=== PATIENT | female | born 1995 | race Caucasian/White ===

== ENCOUNTER 2017-02-26 08:15 | Emergency (ER) | payer OTHER ==
[~2017-02-26] VITALS: Ht 160 cm; Wt 115.3 kg
[~2017-02-26 08:15] MED LIST: ACET325T33 PO; AZIT250T94 PO; BEN25 PO; CLOT30CR24 TOP; IBUP800T25 PO; ONDA4TAB14 PO
[2017-02-26 08:18] VITALS: Ht 160 cm; Wt 115.3 kg
[2017-02-26] MEDS ORDERED: ONDANSETRON (ODT) 4 MG TAB ODT STA (08:28)
[2017-02-26] MEDS ORDERED: HYDROCODONE/APAP (5/325) TAB PO ONE (08:30)
--- NOTE | 2017-02-26 08:30 | ERD ---
ER Documentation Chief Complaint Chief Complaint RUQ PAIN W/ NAUSEA SINCE LAST NIGHT HPI 21-year-old female history of obesity presenting with right upper quadrant abdominal pain with nausea starting last night after eating meat and "chile". Patient describes localized pain that is sharp, intermittent, moderate associated with nausea but no vomiting. She states that she tried taking Tylenol without much relief. She denies fevers chills, cough, chest pain, shortness breath. He was recently seen for pneumonia on February 07 and was treated with antibiotics the patient states that she completed the course. ROS All systems reviewed and are negative except as per history of present illness. Medications Home Meds Active Scripts Cephalexin* (Keflex*) 500 Mg Capsule, 500 MG PO TID for 5 Days, CAP Prov:SULMA SAM PA-C 02/26/17 Ondansetron (Ondansetron Odt) 4 Mg Tab.rapdis, 4 MG PO Q6H Y for NAUSEA AND/OR VOMITING, #10 TAB Prov:SULMA SAM PA-C 02/26/17 Ibuprofen* (Motrin*) 600 Mg Tab, 600 MG PO Q6, #30 TAB Prov:SULMA SAM PA-C 02/26/17 Hydrocodone/Acetaminophen ([place] 5-325 Tablet) 1 Each Tablet, 1 TAB PO Q6H Y for PAIN, #7 TAB Prov:SULMA SAM PA-C 02/26/17 Ondansetron (Ondansetron Odt) 4 Mg Tab.rapdis, 4 MG PO Q6H Y for NAUSEA AND/OR VOMITING, #10 TAB Prov:KENYATTA COREY NP 02/07/17 Acetaminophen* (Tylenol*) 325 Mg Tablet, 1 TAB PO Q6 Y for PAIN AND OR ELEVATED TEMP, #20 TAB Prov:KENYATTA COREY NP 02/07/17 Azithromycin* (Zithromax*) 250 Mg Tablet, 250 MG PO .CAROLIANCK DIRECTED, #6 TAB TAKE 500 MG (2 TABS) THE FIRST DAY THEN 250 MG (1 TAB) DAYS 2-5 Prov:KENYATTA COREY NP 02/07/17 Diphenhydramine Hcl* (Benadryl*) 25 Mg Cap, 25 MG PO Q6, #14 CAP Prov:CIRO DE LA CRUZ DO 06/06/15 Ibuprofen* (Motrin*) 800 Mg Tab, 800 MG PO Q6H Y for PAIN AND OR ELEVATED TEMP, #30 TAB Prov:CIRO DE LA CRUZ DO 06/06/15 Clotrimazole* (Clotrimazole* AF) 1% - 30 Gm Cream.gm., 1 APPLIC TOP BID for 7 Days, TUB Prov:CIRO DE LA CRUZ DO 06/06/15 Allergies Allergies: Coded Allergies: No Known Drug Allergies (Verified Allergy, Mild, 02/02/12) PMhx/Soc Hx Miscellaneous Medical Probl: No (NO MED HX) Hx Alcohol Use: No Hx Substance Use: No Hx Tobacco Use: No Physical Exam Vitals Vital Signs Date Time Temp Pulse Resp B/P Pulse Ox O2 Delivery O2 Flow Rate FiO2 02/26/17 08:18 97.7 80 20 125/68 98 Physical Exam General: Well-developed, well-nourished. The patient appears in no acute distress. HEENT: Head is normocephalic, atraumatic. No scleral icterus. Pupils are equal , round, and reactive. Oral mucous membranes are moist. No pharyngeal erythema. Neck: Supple. Nontender. Lungs: Clear to auscultation. Normal air movement. Heart: Regular rate and rhythm. S1 and S2 are normal. No murmurs, gallops, or rubs. Abdomen: Soft, tender to palpation in the right upper quadrant, no Jones sign, no hepatosplenomegaly nondistended. Bowel sounds are normoactive. Tenderness to McBurney's. There is no rebound or guarding. Extremities: No clubbing or cyanosis. Normal pulses. Moving extremities x 4. No weakness. Neurologic: Alert and oriented 3. No focal deficits. Skin: Normal turgor. No rash or lesions. Result Diagram: 02/26/1791902/26/1720 Results 24 hrs Laboratory Tests Test 02/26/17 08:30 02/26/17 09:20 Urine Color YELLOW Urine Clarity SLIGHTLY CLOUDY Urine pH 6.0 Urine Specific [place] 1.013 Urine Ketones NEGATIVEmg/dL Urine Nitrite NEGATIVEmg/dL Urine Bilirubin NEGATIVEmg/dL Urine Urobilinogen NEGATIVEmg/dL Urine Leukocyte Esterase 1+Anisa/ul Urine Microscopic RBC 2/HPF Urine Microscopic WBC 7/HPF Urine Squamous Epithelial Cells FEW/HPF Urine Bacteria FEW/HPF Urine Hemoglobin NEGATIVEmg/dL Urine Glucose NEGATIVEmg/dL Urine Total Protein NEGATIVEmg/dl White Blood Count 11.010^3/ul Red Blood Count 4.6210^6/ul Hemoglobin 12.1g/dl Hematocrit 37.5% Mean Corpuscular Volume 81.2fl Mean Corpuscular Hemoglobin 26.2pg Mean Corpuscular Hemoglobin Concent 32.3g/dl Red Cell Distribution Width 16.3% Platelet Count 25066^3/UL Mean Platelet Volume 9.1fl Neutrophils % 68.8% Lymphocytes % 25.3% Monocytes % 3.8% Eosinophils % 1.4% Basophils % 0.4% Nucleated Red Blood Cells % 0.0/100WBC Neutrophils # 7.610^3/ul Lymphocytes # 2.810^3/ul Monocytes # 0.410^3/ul Eosinophils # 0.210^3/ul Basophils # 0.010^3/ul Nucleated Red Blood Cells # 0.010^3/ul Sodium Level 141mmol/L Potassium Level 4.2mmol/L Chloride Level 107mmol/L Carbon Dioxide Level 26mmol/L Anion Gap 12 Blood Urea Nitrogen 11mg/dl Creatinine 0.55mg/dl Glucose Level 97mg/dl Calcium Level 9.3mg/dl Total Bilirubin 0.1mg/dl Direct Bilirubin 0.00mg/dl Indirect Bilirubin 0.1mg/dl Aspartate Amino Transf (AST/SGOT) 23IU/L Alanine Aminotransferase (ALT/SGPT) 32IU/L Alkaline Phosphatase 103IU/L Total Protein 7.9g/dl Albumin 3.8g/dl Globulin 4.10g/dl Albumin/Globulin Ratio 0.92 Lipase 157U/L Serum HCG, Qualitative NEGATIVE Current Medications Medications (Trade) Dose Ordered Sig/Anh Route PRN Reason Start Time Stop Time Status Last Admin Dose Admin Acetaminophen/ Hydrocodone Bitart ([place] (5/325)) 1 tab ONCE ONCE PO 02/26/17 08:30 02/26/17 08:31 DC 02/26/17 08:36 Ondansetron HCl (Zofran Odt) 4 mg ONCE STAT ODT 02/26/17 08:28 02/26/17 08:29 DC 02/26/17 08:36 DIAGNOSTIC IMAGING REPORT Patient: SIOMARA MANTILLA : 1995 Age: 21 Sex: F MR #: [id number] DOS: 02/26/17 0826 Ordering MD: SULMA SAM PA-C Location: [facility] Room/Bed: PROCEDURE: Right upper quadrant abdominal ultrasound. CLINICAL INDICATION: Abdominal pain TECHNIQUE: Yanez scale and color doppler ultrasound images of the right upper quadrant of the abdomen. COMPARISON: None FINDINGS: Pancreas: Visualized portions appear of normal echogenicity without focal lesions. Liver: Morphology:Normal in size. Contour:Normal, no evidence of nodularity. Echogenicity: Normal. Focal lesions:None. Main portal vein: Patent with hepatopetal flow. Biliary System: Gallbladder wall: Normal thickness. Gallstones: Multiple are present. Intrahepatic bile ducts: Normal caliber. Common bile duct diameter (mm): 3.7 Kidneys: Right length (cm) : 11.1 Right cortical thickness: Normal. Echogenicity: Normal. Hydronephrosis: None. Renal calculi: None. Focal lesions: None. Free fluid/ascites: None. Abdominal aorta: Normal caliber of the visualized segments. Other findings: None. IMPRESSION: Cholelithiasis without evidence of abnormal gallbladder wall thickening to suggest cholecystitis. Normal caliber of the intrahepatic and extrahepatic biliary system. RPTAT: AADD .Anthony Perry MD, MD Date Time Electronically viewed and signed by .Anthony Perry MD, MD on 02/26/2017 09:17 .B/ Procedures/MDM 21 year old female comes in to the ER with biliary colic, without evidence of choledocholithiasis, acute cholangitis, pancreatitis, acute cholecystitis. Patient's liver function tests, lipase are normal, including bilirubin. Urine was significant for 1+ leukocyte esterase with 8 white blood cells were treated for UTI. Patient was given [place] with [facility] emergency department and states that her pain is better, serial abdominal examinations were done and she is resting comfortably. She was given all copies of her lab and ultrasound findings and was asked to follow-up with her primary care doctor. She was given dietary precautions, advised to get a referral to see a surgeon. Departure Diagnosis: Primary Impression: Biliary colic Additional Impression: UTI (urinary tract infection) Condition: Good SULMA SAM PA-C Feb 26, 2017 08:30
--- NOTE | 2017-02-26 09:17 | RADRPT ---
PROCEDURE: Right upper quadrant abdominal ultrasound. CLINICAL INDICATION: Abdominal pain TECHNIQUE: Yanez scale and color doppler ultrasound images of the right upper quadrant of the abdom en. COMPARISON: None FINDINGS: Pancreas: Visualized portions appear of normal echogenicity without focal lesions. Liver: Morphology:Normal in size. Contour:Normal, no evidence of nodularity. Echogenicity: Normal. Focal lesions:None. Main portal vein: Patent with hepatopetal flow. Biliary System: Gallbladder wall: Normal thickness. Gallstones: Multiple are present. Intrahepatic bile ducts: Normal caliber. Common bile duct diameter (mm): 3.7 Kidneys: Right length (cm) : 11.1 Right cortical thickness: Normal. Echogenicity: Normal. Hydronephrosis: None. Renal calculi: None. Focal lesions: None. Free fluid/ascites: None. Abdominal aorta: Normal caliber of the visualized segments. Other findings: None. IMPRESSION: Cholelithiasis without evidence of abnormal gallbladder wall thickening to suggest cholecystitis. Normal caliber of the intrahepatic and extrahepatic biliary system. RPTAT: AADD .Anthony Perry MD, MD Date Time Electronically viewed and signed by .Anthony Perry MD, MD on 02/26/2017 09:17 .B/
[2017-02-26 09:25] LABS: ADD UMIC YES; UR ASCORBIC ACID NEGATIVE (NEGATIVE); UR BACTERIA FEW /HPF (NONE SEEN); UR BILIRUBIN (Dip) NEGATIVE (NEGATIVE); UR BLOOD (Dip) NEGATIVE (NEGATIVE); UR CLARITY SLIGHTLY CLOUDY (CLEAR); UR COLOR YELLOW (YELLOW); UR GLUCOSE (Dip) NEGATIVE (NEGATIVE); UR KETONES (Dip) NEGATIVE (NEGATIVE); UR LEUKOCYTE ESTERASE (Dip) 1+ Leu/ul (NEGATIVE); UR NITRITE (Dip) NEGATIVE (NEGATIVE); UR RBC 2 /HPF (0-5); UR SPECIFIC GRAVITY (Dip) 1.013 (1.003-1.030); UR SQUAMOUS EPITHELIAL CELL FEW /HPF (FEW); UR TOTAL PROTEIN (Dip) NEGATIVE (NEGATIVE); UR UROBILINOGEN (Dip) NEGATIVE (NEGATIVE)
[2017-02-26 09:36] LABS: BASOPHILS % 0.4 % (0.0-2.0); EOSINOPHILS # 0.2 10^3/ul (0.0-0.5); EOSINOPHILS % 1.4 % (0.0-7.0); HEMATOCRIT 37.5 % (37.0-47.0); HEMOGLOBIN 12.1 g/dl (12.0-16.0); LYMPHOCYTES # 2.8 10^3/ul (0.8-2.9); LYMPHOCYTES % 25.3 % (18.0-55.0); MEAN CORPUSCULAR HEMOGLOBIN 26.2 pg (29.0-33.0); MEAN CORPUSCULAR HGB CONC 32.3 g/dl (32.0-37.0); MEAN CORPUSCULAR VOLUME 81.2 fl (72.0-104.0); MEAN PLATELET VOLUME 9.1 fl (7.4-10.4); MONOCYTE # 0.4 10^3/ul (0.3-0.9); MONOCYTES % 3.8 % (0.0-13.0); NEUTROPHIL # 7.6 10^3/ul (1.6-7.5); NEUTROPHILS % 68.8 % (30.0-74.0); PLATELET COUNT 448 10^3/UL (140-415); RED BLOOD COUNT 4.62 10^6/ul (4.20-5.40); RED CELL DISTRIBUTION WIDTH 16.3 % (11.5-14.5)
[2017-02-26] MEDS ORDERED: IBUP-1542 PO (09:39)
[2017-02-26] MEDS ORDERED: ONDA4TAB14 PO (09:39)
[2017-02-26] MEDS ORDERED: CEPH-443 PO (09:39)
[2017-02-26] MEDS ORDERED: HYDR-906 PO (09:39)
[2017-02-26 09:54] LABS: ALBUMIN 3.8 g/dl (3.3-4.9); ALBUMIN/GLOBULIN RATIO 0.92; BILIRUBIN,INDIRECT 0.1 mg/dl (0-1.1); BILIRUBIN,TOTAL 0.1 mg/dl (0.2-1.3); CALCIUM 9.3 mg/dl (8.4-10.2); CREATININE 0.55 mg/dl (0.44-1.00); POTASSIUM 4.2 mmol/L (3.5-5.1); TOTAL PROTEIN 7.9 g/dl (6.1-8.1)
== END 2017-02-26 10:30 | disposition home or self-care (01) ==
LOC: FTE 08:15
DX: K80.50 Calculus of bile duct without cholangitis or cholecystitis without obstruction (principal); N39.0 Urinary tract infection, site not specified
CPT/HCPCS: 36415; 76705; 80053; 81001; 83690; 84703; 85025; Z7502; Z7610

== ENCOUNTER 2017-10-07 04:19 | Emergency (ER) | END 2017-10-07 08:42 | disposition home or self-care (01) ==

== ENCOUNTER 2017-10-28 22:50 | Emergency (ER) | END 2017-10-29 03:15 | disposition home or self-care (01) ==

== ENCOUNTER 2017-12-08 09:56 | Emergency (ER) | END 2017-12-08 12:04 | disposition home or self-care (01) ==

== ENCOUNTER 2017-12-28 06:08 | Day surgery (SDC) | END 2017-12-28 12:30 | disposition home or self-care (01) ==

== ENCOUNTER 2018-01-06 00:27 | Emergency (ER) | END 2018-01-06 01:35 | disposition home or self-care (01) ==

== ENCOUNTER 2018-01-31 22:17 | Emergency (ER) | END 2018-02-01 01:59 | disposition home or self-care (01) ==

== ENCOUNTER 2018-03-09 13:14 | Emergency (ER) | END 2018-03-09 16:14 | disposition home or self-care (01) ==

== ENCOUNTER 2018-09-01 18:45 | Emergency (ER) | payer OTHER ==
[~2018-09-01] VITALS: Ht 160 cm; Wt 122.2 kg
[~2018-09-01 18:45] MED LIST changes: -ACET325T33 PO; +AMOX1TAB10 PO; +AMOX500C2 PO; -AZIT250T94 PO; -BEN25 PO; -CLOT30CR24 TOP; +D-ME473S2 PO; +IBUP-1542 PO; -IBUP800T25 PO; +NAPR-985 PO; -ONDA4TAB14 PO
[2018-09-01 18:48] VITALS: Ht 160 cm; Wt 122.2 kg
--- NOTE | 2018-09-01 20:37 | ERD ---
ER Documentation Chief Complaint Chief Complaint Pt reports tonsils removed a week ago and now having bleeding in throat HPI 22-year-old woman status post tonsillectomy presenting with taste of blood to the back of her throat. She states she has been using Vicodin without relief for postoperative pain as well. She denies fevers or chills, no difficulty speaking or swallowing, no chest pain or shortness of breath, no dizziness or loss of consciousness ROS All systems reviewed and are negative except as per history of present illness. Medications Home Meds Active Scripts Oxycodone HCl/Acetaminophen (Percocet 5-325 mg Tablet) 1 Each Tablet, 1 EACH PO TID PRN for PAIN LEVEL 6-10, #9 TAB Prov:POLO CUMMINGS MD 09/01/18 Ibuprofen* (Motrin*) 600 Mg Tab, 600 MG PO Q8 PRN for PAIN AND/OR INFLAMMATION, #30 TAB Prov:POLO CUMMINGS MD 09/01/18 Chlorhexidine Gluconate (Peridex) 473 Ml Mouthwash, 15 ML MM BID for 7 Days, BOTTLE Prov:CARTER LINDSEY DO 08/21/18 Hydrocodone/Acetaminophen ([place] 10-325 Tablet) 1 Each Tablet, 1 TAB PO Q6H PRN for PAIN, #16 TAB Prov:CARETR LINDSEY DO 08/21/18 Azithromycin* (Azithromycin*) 200 Mg/5 Ml Susp.recon, 500 MG PO DAILY, #1 BOTTLE 500MG DAY 1 THEN 250 MG DAY 2-5 Prov:CARTER LINDSEY DO 08/21/18 Allergies Allergies: Coded Allergies: No Known Drug Allergies (Verified Allergy, Unknown, 08/19/18) PMhx/Soc History of Surgery: Yes (gall bladder, TONSILECTOMY 2019) Anesthesia Reaction: No Hx Neurological Disorder: No Hx Respiratory Disorders: No Hx Cardiac Disorders: No Hx Psychiatric Problems: No Hx Miscellaneous Medical Probl: No Hx Alcohol Use: No Hx Substance Use: No Hx Tobacco Use: No Smoking Status: Never smoker FmHx Family History: No diabetes Physical Exam Vitals Vital Signs Date Temp Pulse Resp B/P (MAP) Pulse Ox O2 O2 Flow FiO2 Time Delivery Rate 09/01/18 98.3 78 19 116/85 99 Room Air 21:27 (95) 09/01/18 98.7 75 20 140/64 98 18:48 (89) Physical Exam GENERAL: Well-developed, well-nourished, well-hydrated, in no apparent distress, looks nontoxic in appearance, afebrile HEENT: Moist mucous membranes, pink conjunctiva, no cervical spine tenderness or step-off deformities, no goiter, no jaundice or icterus, extraocular movements intact without pain. No submandibular induration, and no pharyngeal erythema. Tonsillar pillars revealed granulation tissue and recent surgical changes but no bleeding, no purulent discharge NEURO: Alert and oriented 3, cranial nerves II through XII intact bilaterally, pupils equal round reactive to light, gait normal CARDIAC: Regular rate and rhythm, no murmurs rubs or gallops LUNGS: Clear bilaterally no wheezing crackles or stridor Result Diagram: 09/01/18193409/01/181934 Results 24 hrs Laboratory Tests Test 09/01/18 19:35 White Blood Count 10.9 10^3/ul Red Blood Count 4.60 10^6/ul Hemoglobin 11.6 g/dl Hematocrit 37.7 % Mean Corpuscular Volume 82.0 fl Mean Corpuscular Hemoglobin 25.2 pg Mean Corpuscular Hemoglobin Concent 30.8 g/dl Red Cell Distribution Width 16.1 % Platelet Count 463 10^3/UL Mean Platelet Volume 8.9 fl Immature Granulocytes % 0.300 % Neutrophils % 64.4 % Lymphocytes % 28.5 % Monocytes % 5.3 % Eosinophils % 1.0 % Basophils % 0.5 % Nucleated Red Blood Cells % 0.0 /100WBC Immature Granulocytes # 0.030 10^3/ul Neutrophils # 7.0 10^3/ul Lymphocytes # 3.1 10^3/ul Monocytes # 0.6 10^3/ul Eosinophils # 0.1 10^3/ul Basophils # 0.1 10^3/ul Nucleated Red Blood Cells # 0.0 10^3/ul Sodium Level 141 mmol/L Potassium Level 3.7 mmol/L Chloride Level 104 mmol/L Carbon Dioxide Level 29 mmol/L Anion Gap 8 Blood Urea Nitrogen 9 mg/dl Creatinine 0.54 mg/dl Est Glomerular Filtrat Rate mL/min > 60 mL/min Glucose Level 82 mg/dl Calcium Level 9.3 mg/dl Procedures/MDM CBC reveals mild anemia, electrolytes normal. Patient feels much better at this time, and vital signs are normal, symptoms have improved. I did give strict instructions to return to the ED if symptoms continue or worsen, patient will otherwise follow-up with primary care physician. Patient understood instructions and agreed to plan. Disclaimer: Inadvertent spelling and grammatical errors are likely due to EH R/dictation software use and do not reflect on the overall quality of patient care. Also, please note that the electronic time recorded on this note does not necessarily reflect the actual time of the patient encounter. Departure Diagnosis: Primary Impression: Postoperative bleeding from incision Additional Impression: Postoperative pain Condition: Good Patient Instructions: Post Op Wound Check, Pain Referrals: [facility] (PCP) POLO CUMMINGS MD September 01, 2018 20:37
[2018-09-01 21:27] VITALS: BP 116/85; PULSE 78; RESP 19
--- NOTE | 2018-09-03 22:39 | OPR ---
Date/Time of Note Date/Time of Note DATE: 09/03/18 TIME: 22:34 Operative Report Procedure Date: September 03, 2018 Preoperative Diagnosis Post tonsillectomy bleeding. Postoperative Diagnosis Left tonsil fossa bleeding. Operation/Procedure Performed Exam under anesthesia, control of left tonsil fossa hemorrhage, gastric evacuation. Surgeon see signature line Safety And Health Consultant None Anesthesia Type: general Estimated Blood Loss: 10 - 50 ml's Transfusion none Specimen none Grafts/Implants none Complications none Pt Condition Post Procedure: stable Disposition: PACU Indications Called to ED for rapid oral bleeding. Patient found with large clot left fossa, vomiting blood. To OR emergently for control of hemorrhage. Procedure Description Description of procedure: The patient was identified in the holding area after transfer from ED and taken to OR emergently. The patient was laid supine on the operating room table and general anesthesia was achieved with with rapid sequence. The face was draped in sterile fashion. A McIvor mouth gag was placed and used to retract the oral cavity open, taking care to avoid damage to the teeth. The oral cavity and pharynx were inspected and palpated to reveal a large clot on the left fossa which, when suctioned out, revealed a small arterial bleeder. This was fairly easily controlled with suction Bovie cautery. The stomach was then entered with an NG tube and approximately 10 passes were made to empty the stomach of all clot and fluid contents. This took 10 minutes and during this time, no bleeding or oozing was noted. The patient was light and valsalva and bucking revealed no bleeding with increased pressure. At this point the copious irrigation and suctioning was performed. Secondary inspection revealed no bleeding or oozing. The patient was awakened, extubated and taken to the PACU in stable condition. Complications: None CYNTHIA LORENZO MD September 03, 2018 22:39
--- NOTE | 2018-09-03 22:42 | HP ---
Date/Time of Note Date/Time of Note DATE: 09/03/18 TIME: 22:40 Assessment/Plan VTE Prophylaxis Pharmacological prophylaxis: NA/contraindicated Pharm contraindication: bleeding Assessment/Plan Hospital Course Left tonsil bleed. To OR for control Assessment/Plan Left tonsil bleed, to OR for control. Result Diagram: 09/01/18193409/01/181934 HPI/ROS Admit Date/Time Admit Date/Time Hx of Present Illness Oral bleeding two days. ROS Subjective hx not possible: pt critical PMH/Family/Social Past Medical History Medical History: no pertinent history Coded Allergies: No Known Drug Allergies (Verified Allergy, Unknown, 08/19/18) Past Surgical History Two weeks post tonsillectomy. Family History Significant Family History: no pertinent family hx Social History Alcohol Use: none Smoking Status: Never smoker Drug Use: none Exam/Review of Systems Vital Signs Vitals Vital Signs Date Temp Pulse Resp B/P (MAP) Pulse Ox O2 O2 Flow FiO2 Time Delivery Rate 09/01/18 98.3 78 19 116/85 99 Room Air 21:27 (95) Exam Exam Left tonsil fossa clot. Large. Fresh blood escaping. CYNTHIA LORENZO MD September 03, 2018 22:42
== END 2018-09-01 21:30 | disposition home or self-care (01) ==
LOC: E/R 18:45 → MERGE 18:45 → E/R 21:30
DX: J95.830 Postprocedural hemorrhage of a respiratory system organ or structure following a respiratory system procedure (principal); G89.18 Other acute postprocedural pain
CPT/HCPCS: 36415; 80048; 85025; Z7502; 99283

== ENCOUNTER 2018-09-03 18:21 | Day surgery (SDC) | payer OTHER ==
[~2018-09-03] VITALS: Wt 90.0 kg
[2018-09-03] VITALS (12 sets, daily range): BP systolic 90–133; BP diastolic 48–62; PULSE 61–84; RESP 14–20
[2018-09-03] MEDS ORDERED: SOD CHLORIDE 0.9% 1,000 ML IV ONE (20:56)
--- NOTE | 2018-09-03 21:29 | ERD ---
ER Documentation Chief Complaint Chief Complaint tonsilectomy 2 weeks ago, reported bleeding, no active bleeding noted HPI 22-year-old female presents status post tonsillectomy 2 weeks ago. She said intermittent bleeding for last 2 days. She was seen here 2 days ago although under different account number. She was discharged home as apparently bleeding stopped and hematocrit was stable. She has had intermittent bleeding over the last 2 days. She called her ENTs office, Dr. Bishop who advised her to present to the ER for persistent bleeding. She was fine for 2 weeks status post procedure. She denies any fevers, chest pain, vomiting, abdominal pain. She has had nothing by mouth for approximately 8 hours. ROS All systems reviewed and are negative except as per history of present illness. Medications Home Meds Active Scripts Amoxicillin* (Amoxicillin*) 500 Mg Cap, 500 MG PO TID for 10 Days, CAP Prov:PADMINI CLAY MD 05/20/18 Dextromethorphan Hb-Promethazine Hcl* (Promethazine DM* Syrup) 473 Ml Syrup, 5 ML PO Q6 PRN for COUGH for 4 Days, ML Prov:PADMINI CLAY MD 05/20/18 Ibuprofen* (Motrin*) 600 Mg Tab, 600 MG PO Q6, #15 TAB Prov:PADMINI CLAY MD 05/20/18 Amoxicillin/Potassium Clav (Amox-Clav 875-125 mg Tablet) 875-125 mg Tab, 1 TAB PO BID for 7 Days, #14 TAB Prov:YELENA LEY DO 03/09/18 Ibuprofen* (Motrin*) 600 Mg Tab, 600 MG PO Q6, #30 TAB Prov:PRANEETH KIRKPATRICK 02/01/18 Naproxen* (Naprosyn*) 500 Mg Tablet, 500 MG PO BID PRN for PAIN AND/OR INFLAMMATION, #30 TAB Prov:BRYNN MOON PA-C 01/06/18 Allergies Allergies: Coded Allergies: No Known Drug Allergies (Verified Allergy, Mild, 12/28/17) PMhx/Soc History of Surgery: Yes (Cholecystectomy) Anesthesia Reaction: No Hx Neurological Disorder: No Hx Respiratory Disorders: No Hx Cardiac Disorders: No Hx Psychiatric Problems: No Hx Miscellaneous Medical Probl: No Hx Alcohol Use: No Hx Substance Use: No Hx Tobacco Use: No Smoking Status: Never smoker FmHx Family History: No diabetes, No coronary disease, No other Physical Exam Vitals Vital Signs Date Temp Pulse Resp B/P (MAP) Pulse Ox O2 O2 Flow FiO2 Time Delivery Rate 09/03/18 98.1 77 18 133/59 99 18:24 (83) Physical Exam Const: No acute distress Head: Atraumatic Eyes: Normal Conjunctiva ENT: Normal External Ears, Nose and Mouth. There is a clot with oozing on the left tonsillar wound bed. No erythema and airway is patent. Patient is actively spitting up blood-tinged saliva Neck: Full range of motion. No meningismus. Resp: Clear to auscultation bilaterally Cardio: Regular rate and rhythm, no murmurs Abd: Soft, non tender, non distended. Normal bowel sounds Skin: No petechiae or rashes Back: No midline or flank tenderness Ext: No cyanosis, or edema Neur: Awake and alert Psych: Normal Mood and Affect Results 24 hrs Laboratory Tests Test 09/03/18 21:31 09/03/18 21:53 White Blood Count Pending Red Blood Count Pending Hemoglobin Pending Hematocrit Pending Mean Corpuscular Volume Pending Mean Corpuscular Hemoglobin Pending Mean Corpuscular Hemoglobin Concent Pending Red Cell Distribution Width Pending Platelet Count Pending Mean Platelet Volume Pending POC Beta HCG, Qualitative NEGATIVE Current Medications Medications Dose Sig/Anh Start Time Status Last (Trade) Ordered Route PRN Stop Time Admin Dose Reason Admin Sodium 1,000 ml @ Q0M ONCE 09/03/18 DC 09/03/18 Chloride 0 mls/hr IV 20:56 21:48 09/03/18 20:57 Procedures/MDM Patient presents with postop tonsillectomy bleeding 2 weeks post procedure. She is otherwise speaking complete sentences well-appearing. Dr. Bishop was contacted who will likely take the patient to the operating room for operative treatment under anesthesia. CBC, metabolic panel, frequently studies pending at time of dictation. Dr. Bishop presented but after an apparent unsuccessful attempt at conservative treatment at bedside patient was taken to OR for further evaluation and treatment under anesthesia. Patient was given 1 L normal saline saline and stable up until time taken directly to operating room. Departure Diagnosis: Primary Impression: Post-op bleeding Surgical complication system/body Area: respiratory system Procedure type: non-respiratory system Qualified Codes: J95.831 - Postprocedural hemorrhage of a respiratory system organ or structure following other procedure Condition: PADMINI Bean MD September 03, 2018 21:29
[2018-09-03] MEDS ORDERED: FENTAnyl 50 MCG/ML VIAL IV PRN ×3 (22:00)
[2018-09-03] MEDS ORDERED: HYDROmorphONE 1 MG/5 ML IV SYRINGE IV PRN ×3 (22:00)
[2018-09-03] MEDS ORDERED: DESFLURANE 15 MIN ONE (22:00)
[2018-09-03] MEDS ORDERED: ONDANSETRON 4 MG INJ IV PRN (22:00)
--- NOTE | 2018-09-03 22:00 | PREAC ---
Date/Time of Note Date/Time of Note DATE: 09/03/18 TIME: 21:56 Anesthesia Eval and Record Evaluation Time Pre-Procedure Interview DATE: 09/03/18 TIME: 21:56 Age 22 Sex female NPO: Other 1400 pm , water half an hour ago Preoperative diagnosis l post tonsilectomy bleedinng Planned procedure cotrol post tonsilectomy bleedinng Past Medical History Past Medical History: Includes GI: Obesity Surgery & Anesthesia Issues No known issue Meds Anticoagulation: No Beta Konstantin within 24 hr: No Reason Beta Konstantin not given: Pt. not on B-Konstantin Active Scripts Amoxicillin* (Amoxicillin*) 500 Mg Cap, 500 MG PO TID for 10 Days, CAP Prov:PADMINI CLAY MD 05/20/18 Dextromethorphan Hb-Promethazine Hcl* (Promethazine DM* Syrup) 473 Ml Syrup, 5 ML PO Q6 PRN for COUGH for 4 Days, ML Prov:PADMINI CLAY MD 05/20/18 Ibuprofen* (Motrin*) 600 Mg Tab, 600 MG PO Q6, #15 TAB Prov:PADMINI CLAY MD 05/20/18 Amoxicillin/Potassium Clav (Amox-Clav 875-125 mg Tablet) 875-125 mg Tab, 1 TAB PO BID for 7 Days, #14 TAB Prov:YELENA LEY DO 03/09/18 Ibuprofen* (Motrin*) 600 Mg Tab, 600 MG PO Q6, #30 TAB Prov:PRANEETH KIRKPATRICK 02/01/18 Naproxen* (Naprosyn*) 500 Mg Tablet, 500 MG PO BID PRN for PAIN AND/OR INFLAMMATION, #30 TAB Prov:BRYNN MOON PA-C 01/06/18 Meds reviewed: Yes Allergies Coded Allergies: No Known Drug Allergies (Verified Allergy, Mild, 12/28/17) Allergies Reviewed: Yes Labs/Studies Labs Reviewed: Reviewed by anesthesiologist test: Negative Studies: ECG (n/a), CXR (n/a) Pre-procedure Exam Last vitals Vital Signs Date Temp Pulse Resp B/P (MAP) Pulse Ox O2 O2 Flow FiO2 Time Delivery Rate 09/03/18 98.1 77 18 133/59 99 18:24 (83) Airway: Adequate mouth opening Mallampati: Mallampati I Teeth: Normal Lung: Normal Heart: Normal ASA Physical Status ASA physical status: 2 Emergency: E Planned Anesthetic General/MAC: ETT Planned Pain Management Parenteral pain med Pre-operative Attestations Prior to commencing anesthesia and surgery, the patient was re-evaluated, there was verification of: *The patient's identity *The results of appropriate recent lab work and preoperative vital signs *The above evaluation not changing prior to induction *Anesthetic plan, risk benefits, alternative and complications discussed with patient/family; questions answered; patient/family understands, accepts and wishes to proceed. MEY ALONZO MD September 03, 2018 22:00
[2018-09-03] MEDS ORDERED: ONDANSETRON 4 MG INJ ONE ×2 (22:04→23:00)
[2018-09-03] MEDS ORDERED: SUCCINYLCHOLINE CHLORIDE 100 MG/5 ML SYG IV ONE (22:04)
[2018-09-03] MEDS ORDERED: METOCLOPRAMIDE 10 MG INJ ONE (22:04)
[2018-09-03] MEDS ORDERED: PROPOFOL 20 ML ONE (22:04)
[2018-09-03] MEDS ORDERED: MIDAZOLAM 1 MG/ML 2 ML INJ ONE (22:04)
[2018-09-03] MEDS ORDERED: FENTAnyl 50 MCG/ML VIAL ONE (22:14)
--- NOTE | 2018-09-03 22:39 | OPR ---
Date/Time of Note Date/Time of Note DATE: 09/03/18 TIME: 22:34 Operative Report Procedure Date: September 03, 2018 Preoperative Diagnosis Post tonsillectomy bleeding. Postoperative Diagnosis Left tonsil fossa bleeding. Operation/Procedure Performed Exam under anesthesia, control of left tonsil fossa hemorrhage, gastric evacuation. Surgeon see signature line Furnace Installer None Anesthesia Type: general Estimated Blood Loss: 10 - 50 ml's Transfusion none Specimen none Grafts/Implants none Complications none Pt Condition Post Procedure: stable Disposition: PACU Indications Called to ED for rapid oral bleeding. Patient found with large clot left fossa, vomiting blood. To OR emergently for control of hemorrhage. Procedure Description Description of procedure: The patient was identified in the holding area after transfer from ED and taken to OR emergently. The patient was laid supine on the operating room table and general anesthesia was achieved with with rapid sequence. The face was draped in sterile fashion. A McIvor mouth gag was placed and used to retract the oral cavity open, taking care to avoid damage to the teeth. The oral cavity and pharynx were inspected and palpated to reveal a large clot on the left fossa which, when suctioned out, revealed a small arterial bleeder. This was fairly easily controlled with suction Bovie cautery. The stomach was then entered with an NG tube and approximately 10 passes were made to empty the stomach of all clot and fluid contents. This took 10 minutes and during this time, no bleeding or oozing was noted. The patient was light and valsalva and bucking revealed no bleeding with increased pressure. At this point the copious irrigation and suctioning was performed. Secondary inspection revealed no bleeding or oozing. The patient was awakened, extubated and taken to the PACU in stable condition. Complications: None CYNTHIA LORENZO MD September 03, 2018 22:39
[2018-09-03] MEDS ORDERED: HYDROmorphONE 1 MG/5 ML IV SYRINGE IV ONE (23:00)
--- NOTE | 2018-09-04 07:36 | PAC ---
Date/Time of Note Date/Time of Note DATE: 09/04/18 TIME: 07:36 Post-Anesthesia Notes Post-Anesthesia Note Last documented vital signs Vital Signs Date Temp Pulse Resp B/P (MAP) Pulse Ox O2 O2 Flow FiO2 Time Delivery Rate 09/03/18 98.2 66 18 90/53 (65) 99 Room Air 23:35 09/03/18 6.0 22:50 09/03/18 98.2 22:49 Activity: WNL Respiratory function: WNL Cardiovascular function: WNL Mental status: Baseline Pain reasonably controlled: Yes Hydration appropriate: Yes Nausea/Vomiting absent: No MEY ALONZO MD September 04, 2018 07:36
== END 2018-09-04 00:04 | disposition home or self-care (01) ==
LOC: FTE 18:21 → SDS 22:00
PROVIDERS: ATTEND Anesthesiology
DX: J95.830 Postprocedural hemorrhage of a respiratory system organ or structure following a respiratory system procedure (principal); Y83.8 Other surgical procedures as the cause of abnormal reaction of the patient, or of later complication, without mention of misadventure at the time of the procedure
CPT/HCPCS: 36415; 42960; 80048; 81025; 85025; 85610; 85730; 96374; 96375; J1170; J2250; J2405; J2765; J7030; Z7502; Z7512; Z7610; J3010